=== PATIENT | male | born 1995 | race Caucasian/White ===

== ENCOUNTER 2017-02-23 10:58 | Emergency (ER) | payer BC ==
[2017-02-23] MEDS ORDERED: CLEOCIN HCL300 M1 PO (11:04)
== END 2017-02-23 12:38 | disposition home or self-care (01) ==
LOC: SED 10:58
DX: K08.89 Other specified disorders of teeth and supporting structures (principal); Z79.1 Long term (current) use of non-steroidal anti-inflammatories (NSAID)
CPT/HCPCS: 99283